=== PATIENT | male | born 1930 | race Caucasian/White ===

== ENCOUNTER 2016-12-19 14:16 | Observation (INO) ==
--- NOTE | 2016-12-19 14:50 | Emergency Department Note ---
Disposition Clinical Impression: Concussion without loss of consciousness Qualifiers: Encounter type: initial encounter Qualified Code(s): S06.0X0A - Concussion without loss of consciousness, initial encounter Fracture of left humerus Qualifiers: Encounter type: initial encounter Humerus Location: surgical neck Fracture type : closed Fracture morphology: 2-part Fracture alignment: nondisplaced Qualified Code(s): S42.225A - 2-part nondisplaced fracture of surgical neck of left humerus, initial encounter for closed fracture Disposition: Admitted As Inpatient Condition: Fair Time of Disposition: 18:23 Fall HPI - General Chief Complaint: ED Fall Stated Complaint: fall Time Seen by Provider: 12/19/16 14:25 Source: EMS Mode of arrival: EMS Limitations: no limitations Nursing Notes Reviewed: Yes Vital Signs Reviewed: Yes - History of Present Illness HPI Narrative: 78-year-old male with mechanical fall onto his right outstretched hand, also sustained a head injury, unsure if he lost consciousness. Patient states that he does not take blood thinners, than that his only medical history is GERD. He rates it 8/10 aching pain in his head. Bleeding from his right scalp with a large hematoma and bruise. Patient denies any history of falls, hit an ice history of stroke, heart attack. Patient states that he did not have any syncope or lightheadedness that he just slipped on something outside while walking with his cane. Pt Subjective Complaint: fall Onset (ago): hour(s) Fall From: standing Fall Witnessed: no Place Fall Occurred: home Loss of Consciousness: unsure Prolonged Down Time?: no Symptoms Prior to Fall: none Context: tripped/slipped Location of injury: head, face Location of injury - extremities: Left: shoulder, Right: hand Severity: moderate Severity scale (1-10): 8 Associated symptoms (after fall): Reports: headache. Denies: neck pain, numbness, weakness, chest pain - Related Data Allergies Allergy/AdvReac Type Severity Reaction Status Date / Time mirabegron [From Myrbetriq] AdvReac Unknown Vomiting Unverified 04/04/16 22:53 All systems ED: reviewed and negative except as stated. Constitutional: Denies: fever, chills Cardiovascular: Denies: chest pain, palpitations Respiratory: Denies: cough, dyspnea Gastrointestinal: Denies: abdominal pain, nausea, vomiting Genitourinary: Denies: urgency, dysuria Musculoskeletal: Reports: as per HPI, joint swelling, myalgia Integumentary: Reports: as per HPI, lesions Neurological: Reports: as per HPI, headache, abnormal gait Fall PMH - Past Medical History Medical history: Reports: arthritis, cancer, hyperlipidemia, hypertension Psychiatric history: Reports: no psych history - Social History Smoking Status: Never smoker Alcohol use: Reports: none Drug use: Reports: none Physical Exam A airway patent B breathing bilateral breath sounds intact C circulation +2 bilateral dorsalis pedis and radial pulses Constitutional: Elderly gentleman appears in no acute distress, obvious head injury. HEENT: As laceration to the right anterior forehead, with arterial bleed, good hemostasis with pressure. Large abrasion the right right as well with hematoma. sclera anicteric, PERRLA bilaterally, normal external ears bilaterally, no evidence of skull fracture no hemotympanum. nasal septum nondeviated, average dentition, MMM Neck: normal inspection, neck is supple, trachea midline Resp: normal chest inspection, CTA bilaterally, no resp distress CV: RRR, no m/g/r GI: normal inspection, Soft, NTND, BS present Back: normal inspection, no tenderness to palpation Neuro: A&O3, no gross motor or sensory deficits bilaterally clearly intact bilateral upper and lower ext distally. Skin: No rashes, skin warm, dry, intact - General Limitations: no limitations General appearance: alert Course Course Narrative: 86-year-old male with mechanical fall, suspect left shoulder injury with x-ray, and a head CT and neck CT to evaluate for ICH and neck fracture. Patient likely has a concussion given fall and mechanism puncture downtime, he is not on any blood thinners so may be candidate for surgical evaluation or observation pending on findings she will be repaired to the right anterior forehead and the right digit please laceration note Vital Signs Temperature 98.5 F 12/19/16 14:17 Pulse Rate 65 12/19/16 14:17 Respiratory Rate 18 12/19/16 14:17 Blood Pressure 185/84 12/19/16 14:17 O2 Sat by Pulse Oximetry 96 12/19/16 14:17 Temperature 98.5 F 12/19/16 14:17 Pulse Rate 62 12/19/16 18:12 Respiratory Rate 16 12/19/16 18:12 Blood Pressure 162/76 12/19/16 18:12 O2 Sat by Pulse Oximetry 96 12/19/16 18:12 Oxygen Delivery Oxygen Delivery Room Air Fall - MDM Narrative Medical decision making narrative: 86-year-old male with fall, sustaining left humerus fracture, admitted due to debility, weakness, unable to ambulate at home fall risk, consult orthopedic admitted hospital service - Differential Diagnosis Likely: syncope, traumatic injury - Medical Records Medical records reviewed: Yes I reviewed the patient's medical records. - Lab Data Lab results reviewed: Yes I reviewed the patient's lab results. Result diagrams: 12/19/16 15:51 12/19/16 15:51 Lab Results 12/19/16 12/19/16 Range/Units 15:51 15:51 WBC 9.2 (4.3-11.1) K/mcL RBC 4.48 (4.19-5.50) M/mcL Hgb 13.2 (12.9-16.9) g/dL Hct 41.4 (37.5-50.1) % MCV 92.4 (83.0-100.0) fL MCH 29.5 (28.0-33.3) pg MCHC 31.9 (31.6-35.5) g/dL RDW 12.6 (11.5-14.5) % Plt Count 170 (140-400) K/mcL MPV 10.8 (9.4-12.4) fL Immature Gran % 0.2 (0-4) % Seg Neutrophils % 82.2 % Lymphocytes % 8.2 % Monocytes % 6.7 % Eosinophils % 2.3 % Basophils % 0.4 % Neutrophils # 7.6 (1.6-8.9) K/mcL Lymphocytes # 0.8 (0.6-4.6) K/mcL Monocytes # 0.6 (0.0-1.3) K/mcL Eosinophils # 0.2 (0.0-0.6) K/mcL Basophils # 0.0 (0.0-0.2) K/mcL Sodium 139 (136-145) mEq/L Potassium 4.3 (3.5-4.5) mEq/L Chloride 104 (98-109) mEq/L Carbon Dioxide 24 (19-29) mEq/L BUN 14 (8-26) mg/dL Creatinine 1.03 (0.72-1.25) mg/dL Est GFR ( Amer) > 60 (> 60) Est GFR (Non-Af Amer) > 60 (> 60) BUN/Creatinine Ratio 14 (6-26) Glucose 121 H (70-99) mg/dL Calculated Osmolality 290 (280-300) Calcium 8.6 (8.6-10.8) mg/dL - Radiology Data Radiology results reviewed: Yes I reviewed the patient's radiology results. Cervical Spine CT 12/19/16 14:46 IMPRESSION: No acute abnormality of the cervical spine. D/ / Keith Mata MD / Keith Mata MD Interpreting Provider: Keith Mata MD Chest X-Ray 12/19/16 14:46 IMPRESSION: 1. Left basilar atelectasis versus scarring. 2. Nondisplaced left humeral surgical neck fracture. D/ / Rob Virgen MD / Rob Virgen MD Interpreting Provider: Rob Virgen MD Face CT 12/19/16 14:46 IMPRESSION: 1. No acute facial bone abnormality. 2. Right frontal scalp laceration and swelling. No radiopaque foreign body. D/ / Rob Virgen MD / Rob Virgen MD Interpreting Provider: Rob Virgen MD Head CT 12/19/16 14:46 IMPRESSION: No acute intracranial abnormality. D/ / Joshua Larsen MD / Joshua Larsen MD Interpreting Provider: Joshua Larsen MD Knee X-Ray 12/19/16 14:50 IMPRESSION: No acute bony injury. 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 Small joint effusion may be secondary to arthritis but cannot exclude internal derangement. D/ / Mina Fernandez MD / Mina Fernandez MD Interpreting Provider: Mina Fernandez MD Shoulder X-Ray 12/19/16 14:50 IMPRESSION: Acute nondisplaced left humeral surgical neck fracture. D/ / Rob Virgen MD / Rob Virgen MD Interpreting Provider: Rob Virgen MD - EKG Data EKG attestation: Yes I reviewed and interpreted this EKG. EKG shows normal: sinus rhythm (Sinus rhythm ventricular rate of 67 WA 153 QRS 106 QTC 411.) Rhythm: NSR Kennan/QRS: normal When compared to previous EKG there are: no significant changes Interpretation: no acute changes - Core Measures AMI Core Measures Followed: No
--- NOTE | 2016-12-19 15:30 | Emergency Department Note ---
START Narrative - START START: I examined this patient and my medical decision-making was reviewed with the LIABILITY CLAIMS ADJUSTER/PA/Advanced Practice Nurse/Resident Physician. I agree with the documented findings, disposition and treatment plan as described except to the extent set forth below. ED attending note: Patient seen with emergency medicine resident Dr. Florence. Please see a copy of his note for details of the H&P, evaluation, management and disposition of this patient. We independently had [id number] contact with the patient Briefly: 86-year-old male mechanical fall on an object and fell face forward on concrete. End hematoma on the scalp with an abrasion. Process of consciousness. His tetanus is up-to-date. Patient is normal blood thinners. CT scans of the head face and neck are pending. Patient in a c-collar. Provided 30 minutes critical care service for this patient. Disposition pending.
[2016-12-19 16:10] LABS: Basophils % 0.4 %; Eosinophils # 0.2 K/mcL (0.0-0.6); Eosinophils % 2.3 %; Hematocrit 41.4 % (37.5-50.1); Hemoglobin 13.2 g/dL (12.9-16.9); Immature Granulocytes % 0.2 % (0-4); Lymphocytes # 0.8 K/mcL (0.6-4.6); Lymphocytes % 8.2 %; Mean Corpuscular HGB Conc 31.9 g/dL (31.6-35.5); Mean Corpuscular Hemoglobin 29.5 pg (28.0-33.3); Mean Corpuscular Volume 92.4 fL (83.0-100.0); Mean Platelet Volume 10.8 fL (9.4-12.4); Monocytes # 0.6 K/mcL (0.0-1.3); Monocytes % 6.7 %; Neutrophils # 7.6 K/mcL (1.6-8.9); Platelet Count 170 K/mcL (140-400); Red Blood Count 4.48 M/mcL (4.19-5.50); Red Cell Distribution Width 12.6 % (11.5-14.5); Segmented Neutrophils % 82.2 %
[2016-12-19] MEDS ORDERED: Lidocaine/EPI 1:100k 2% 20 ML VIAL INFILT ONE (16:33)
[2016-12-19 16:36] LABS: BUN/Creatinine Ratio 14 (6-26); Blood Urea Nitrogen 14 mg/dL (8-26); Calcium 8.6 mg/dL (8.6-10.8); Carbon Dioxide 24 mEq/L (19-29); Chloride 104 mEq/L (98-109); Glucose 121 mg/dL (70-99); Osmolality,Calculated 290 (280-300); Potassium 4.3 mEq/L (3.5-4.5); Sodium 139 mEq/L (136-145); eGFR For African Americans > 60 (> 60); eGFR For Non-African Americans > 60 (> 60)
[2016-12-19] MEDS ORDERED: Tdap (Boostrix) Vaccine 0.5 ML SYRINGE IM ONE (17:11)
[2016-12-19] MEDS ORDERED: Neosporin OINT 15 GM TUBE TP ONE (17:12)
[2016-12-19] MEDS ORDERED: Naloxone 0.4 MG/ML INJ IVP PRN (21:04)
--- NOTE | 2016-12-19 23:37 | Internal Med History&Physical ---
<Lynda Heredia M - Last Filed: 12/20/16 01:20> Date of Encounter: 12/19/16 Time of Encounter: 23:32 Assessment and Plan (1) Fracture of left humerus Current visit: Yes Status: Acute Shoulder x-ray reveals acute nondisplaced left humeral neck fracture. Dr. Mccabe is consulted and will see patient tomorrow. Left arm in sling. Melrude and morphine when necessary for pain control PT and OT consults Social work consult for discharge planning Qualifiers: Encounter type: initial encounter Humerus Location: surgical neck Fracture type: closed Fracture morphology: 2-part Fracture alignment: nondisplaced Qualified Code(s): S42.225A - 2-part nondisplaced fracture of surgical neck of left humerus, initial encounter for closed fracture (2) Fall Current visit: Yes Status: Acute Patient suffered a mechanical fall ambulating up a hill with his walker. He denies dizziness, lightheadedness, or loss of consciousness. She did hit his head CT of the head showed no acute intracranial abnormality and right frontal scalp hematoma. He suffered a left humeral neck fracture as evidenced by the shoulder x-ray. Social work consult for discharge planning PT and OT consults Qualifiers: Encounter type: initial encounter Qualified Code(s): W19.XXXA - Unspecified fall, initial encounter (3) Head injury due to trauma Current visit: Yes Status: Acute Patient with right forehead laceration, sutured and dressed in the emergency department. Right frontal scalp hematoma. CT of head shows no acute intracranial abnormality. Remove dressing from head tomorrow. Will need follow-up for suture removal. Qualifiers: Encounter type: initial encounter Qualified Code(s): S09.90XA - Unspecified injury of head, initial encounter (4) DVT prophylaxis Current visit: Yes Status: Acute Ambulate with assistance SCDs Lovenox 40 mg subcutaneous daily Internal Medicine - H&P: HPI Chief complaint: Fall Admitted From: Emergency Dept Plans for Post Hospital Care: Home History of present illness: Mr. Cohen is a 86 year old male with hyperlipidemia, sleep apnea, acid reflux, history of colon cancer status post partial colectomy and chemotherapy in 1996, who presented to the emergency department today after suffering a fall. Patient reports he is ambulating with his walker up an incline and his walker hit an obstacle and he lost his balance and fell. Patient had hit his head, his right arm and left arm both hurt after the fall as well. Evaluation in the emergency department revealed right forehead hematoma and laceration which was sutured and dressed, and digit 5 on the right hand laceration which was also sutured and dressed. X-rays revealed acute nondisplaced left humeral neck fracture. CT of the head and face showed right frontal scalp hematoma, and no acute intracranial abnormality. EKG showed normal sinus rhythm. Dr. Mccabe was consulted and will see patient tomorrow. On exam, patient was resting comfortably, alert and oriented, in no acute distress. Dressing over head in place with clean and dry. He was neurovascularly intact, he was able to squeeze my fingers with bilateral hands, and had normal capillary refill. Lungs were clear bilaterally to auscultation and heart had regular rate and rhythm. Note: patient is a poor historian and unsure of what medications he takes, his daughter should be bringing in his med list tomorrow. Past Med Surg Social Fam HX - Past Medical History Source: patient Medical history: arthritis, cancer (colon cancer s/p partial colectomy and chemo 1996), hyperlipidemia, hypertension Psychiatric history: no psych history - Past Surgical History Surgical History: colectomy (partial colectomy for colon cancer 1996), knee replacement, orthopedic, other - Social History Smoking Status: Never smoker Smokeless Tobacco Status: No Alcohol use: none Drug use: none - Family History Father Living Status: Age at : 93 Hx Family Cardiac Disorders: No Hx Family Respiratory Disorders: No Hx Family Cancer: No Hx Family Neurologic Disorders: Yes Hx Family Medical Disorders: Yes Mother Living Status: Age at : 93 Internal Medicine - H&P: Meds Allergies mirabegron [From Myrbetriq] Adverse Reaction (Unknown, Verified 12/19/16 18:29) Vomiting and nausea All Systems PM: A 10-system review of systems was performed and is negative for pertinent findings except as documented above in the HPI. - Constitutional Constitutional: falls, no chills, no fever(s), no night sweats - EENT Eyes: no change in vision, no discharge, no pain, no photophobia Ears: no ear discharge, no ear pain, no tinnitus Nose, mouth and throat: no dysphagia, no nasal discharge, no neck pain, no sore throat - Cardiovascular Cardiovascular ROS IM: no chest pain, no diaphoresis, no dyspnea, no lightheadedness, no palpitations, no syncope - Respiratory Respiratory: no cough, no dyspnea, no wheezing, no excessive phlegm production - Gastrointestinal Gastrointestinal: no abdominal pain, no diarrhea, no hematemesis, no hematochezia, no melena, no nausea, no vomiting - Musculoskeletal Musculoskeletal ROS IM: no numbness, no tingling Additional comments: pain in left shoulder and right arm after fall - Integumentary Integumentary IM: new lesions Additional comments: head laceration and right hand 5th digit laceration - Neurological Neurological ROS: headache(s), no confusion, no convulsions, no focal weakness, no numbness, no tingling, no tremor(s) - Hematologic/Lymphatic Hematologic/Lymphatic: no easy bruising - Constitutional Vitals: Temp Pulse Resp BP Pulse Ox 99.1 F 64 15 139/73 94 L 12/19/16 19:59 12/19/16 19:59 12/19/16 19:59 12/19/16 19:59 12/19/16 19:59 General appearance: Present: A&O X 3, no acute distress - Head Head exam: Present: normocephalic Additional comments: Patient with ecchymosis over right eye, Dressing in place over right forehead laceration - Eye Eye exam: Present: periorbital swelling (right), PERRL, conjuntiva pink, sclera anicteric Pupils: Present: PERRL - Neck Neck exam general surgery: Present: supple, trachea midline. Absent: lymphadenopathy - Respiratory Respiratory exam: Present: CTAB. Absent: accessory muscle use, rales, rhonchi, wheezes - Cardiovascular Cardiovascular exam: Present: RRR, +S1, +S2. Absent: diastolic murmur, gallop, rubs, systolic murmur - GI/Abdominal GI/Abdominal exam: Present: hernia (umbilical hernia - reducible), normal bowel sounds, soft, no peritoneal signs. Absent: distended, tenderness - Extremities Exam Extremities exam: Present: warm, radial pulses palpable and symetrical. Absent : calf tenderness, cyanotic, full ROM (right shoulder), pedal edema - Expanded Upper Extremities Exam Shoulder exam: Present: swelling (left), tenderness (Left) Hand wrist exam: Present: full ROM - Neurological Exam Neurological exam: Present: CN II-XII intact, oriented X3, no focal deficits. Absent: facial droop, speech deficit - Skin Skin exam: Present: dry, intact Internal Med - H&P Results - Labs CBC & Chem 7: 12/19/16 15:51 12/19/16 15:51 Labs: All Lab Results (24 Hours) 12/19/16 12/19/16 Range/Units 15:51 15:51 WBC 9.2 (4.3-11.1) K/mcL RBC 4.48 (4.19-5.50) M/mcL Hgb 13.2 (12.9-16.9) g/dL Hct 41.4 (37.5-50.1) % MCV 92.4 (83.0-100.0) fL MCH 29.5 (28.0-33.3) pg MCHC 31.9 (31.6-35.5) g/dL RDW 12.6 (11.5-14.5) % Plt Count 170 (140-400) K/mcL MPV 10.8 (9.4-12.4) fL Immature Gran % 0.2 (0-4) % Seg Neutrophils % 82.2 % Lymphocytes % 8.2 % Monocytes % 6.7 % Eosinophils % 2.3 % Basophils % 0.4 % Neutrophils # 7.6 (1.6-8.9) K/mcL Lymphocytes # 0.8 (0.6-4.6) K/mcL Monocytes # 0.6 (0.0-1.3) K/mcL Eosinophils # 0.2 (0.0-0.6) K/mcL Basophils # 0.0 (0.0-0.2) K/mcL Sodium 139 (136-145) mEq/L Potassium 4.3 (3.5-4.5) mEq/L Chloride 104 (98-109) mEq/L Carbon Dioxide 24 (19-29) mEq/L BUN 14 (8-26) mg/dL Creatinine 1.03 (0.72-1.25) mg/dL Est GFR ( Amer) > 60 (> 60) Est GFR (Non-Af Amer) > 60 (> 60) BUN/Creatinine Ratio 14 (6-26) Glucose 121 H (70-99) mg/dL Calculated Osmolality 290 (280-300) Calcium 8.6 (8.6-10.8) mg/dL - Diagnostic Studies Other Images Additional comments: Cervical Spine CT 12/19/16 14:46 IMPRESSION: No acute abnormality of the cervical spine. D/ / Keith Mata MD / Keith Mata MD Interpreting Provider: Keith Mata MD Chest X-Ray 12/19/16 14:46 IMPRESSION: 1. Left basilar atelectasis versus scarring. 2. Nondisplaced left humeral surgical neck fracture. D/ / Rob Virgen MD / Rob Virgen MD Interpreting Provider: Rob Virgen MD Face CT 12/19/16 14:46 IMPRESSION: 1. No acute facial bone abnormality. 2. Right frontal scalp laceration and swelling. No radiopaque foreign body. D/ / Rob Virgen MD / Rob Virgen MD Interpreting Provider: Rob Virgen MD Head CT 12/19/16 14:46 IMPRESSION: No acute intracranial abnormality. D/ / Joshua Larsen MD / Joshua Larsen MD Interpreting Provider: Joshua Larsen MD Knee X-Ray 12/19/16 14:50 IMPRESSION: No acute bony injury. 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 Small joint effusion may be secondary to arthritis but cannot exclude internal derangement. D/ / Mina Fernandez MD / Mina Fernandez MD Interpreting Provider: Mina Fernandez MD Shoulder X-Ray 12/19/16 14:50 IMPRESSION: Acute nondisplaced left humeral surgical neck fracture. D/ / Rob Virgen MD / Rob Virgen MD Interpreting Provider: Rob Virgen MD Hand X-Ray 12/19/16 16:50 IMPRESSION: 1. No acute findings in the right hand. 2. Mild to moderate osteoarthritic changes in the right wrist and hand as above, most severe in the 2nd through 5th distal interphalangeal joints. 3. Bony demineralization. D/ / Bryan Angelo MD / Bryan Angelo MD Interpreting Provider: Bryan Angelo MD <Lisa Argueta R - Last Filed: 12/20/16 22:37> Internal Medicine - H&P: HPI History of present illness: Mr. Cohen is a 86 year old male All Systems PM: A 10-system review of systems was performed and is negative for pertinent findings except as documented above in the HPI. - Constitutional Vitals: Temp Pulse Resp BP Pulse Ox 98.9 F 81 17 120/55 92 L 12/20/16 20:04 12/20/16 20:40 12/20/16 20:04 12/20/16 20:40 12/20/16 20:04 Internal Med - H&P Results - Labs CBC & Chem 7: 12/20/16 04:40 12/20/16 04:40 Labs: Short CBC 12/20/16 Range/Units 04:40 WBC 9.7 (4.3-11.1) K/mcL Hgb 12.0 L (12.9-16.9) g/dL Hct 36.5 L (37.5-50.1) % Plt Count 155 (140-400) K/mcL Neutrophils # 7.3 (1.6-8.9) K/mcL BMP 12/20/16 04:40 Sodium 137 Potassium 4.2 Chloride 107 Carbon Dioxide 24 BUN 14 Creatinine 0.88 Glucose 118 H Calcium 8.6 - Attending Attestation CARTRIDGE ASSEMBLING MACHINE ADJUSTER discussed the details with me. I have attempted to see the pt. Pt was sleeping on 2 occassions, when I tried to visit him. He apparently mentioned to the staff not to bother his sleep.
[2016-12-20] MEDS: 0.9 % Sodium Chloride 1,000 ML IVC SCH ×2 (00:24→11:03)
[2016-12-20] MEDS: *HR* Enoxaparin 40 MG/0.4 ML SYRINGE SQ SCH (05:04)
[2016-12-20] MEDS: *HR* Morphine 2 MG/ML SYRINGE IVP PRN ×2 (05:07→21:05)
[2016-12-20 05:16] LABS: Basophils % 0.3 %; Eosinophils # 0.2 K/mcL (0.0-0.6); Eosinophils % 2.2 %; Hematocrit 36.5 % (37.5-50.1); Immature Granulocytes % 0.3 % (0-4); Lymphocytes # 1.2 K/mcL (0.6-4.6); Lymphocytes % 12.5 %; Mean Corpuscular HGB Conc 32.9 g/dL (31.6-35.5); Mean Corpuscular Hemoglobin 30.8 pg (28.0-33.3); Mean Corpuscular Volume 93.6 fL (83.0-100.0); Monocytes % 9.9 %; Neutrophils # 7.3 K/mcL (1.6-8.9); Platelet Count 155 K/mcL (140-400); Segmented Neutrophils % 74.8 %
[2016-12-20 05:41] LABS: BUN/Creatinine Ratio 16 (6-26); Blood Urea Nitrogen 14 mg/dL (8-26); Calcium 8.6 mg/dL (8.6-10.8); Carbon Dioxide 24 mEq/L (19-29); Chloride 107 mEq/L (98-109); Glucose 118 mg/dL (70-99); Osmolality,Calculated 286 (280-300); Potassium 4.2 mEq/L (3.5-4.5); Sodium 137 mEq/L (136-145); eGFR For African Americans > 60 (> 60); eGFR For Non-African Americans > 60 (> 60)
--- NOTE | 2016-12-20 06:43 | Orthopedic Consult Note ---
Date of Encounter: 12/20/16 Time of Encounter: 06:42 History of Present Illness HPI: Mr. Cohen is a 86 year old male s/p fall yesterday. Asked to see patient for left shoulder PE LUE decrease ROM secondary to pain NVI x-rays nondisplace proximal humerus fracture. treat with sling non operative f/u office 1 week. Past Med Surg Social Fam HX - Past Medical History Medical history: arthritis, cancer (colon cancer s/p partial colectomy and chemo 1996), hyperlipidemia, hypertension Psychiatric history: no psych history - Past Surgical History Surgical History: colectomy (partial colectomy for colon cancer 1996), knee replacement, orthopedic, other - Social History Smoking Status: Never smoker Smokeless Tobacco Status: No Alcohol use: none Drug use: none - Family History Father Living Status: Age at : 93 Hx Family Cardiac Disorders: No Hx Family Respiratory Disorders: No Hx Family Cancer: No Hx Family Neurologic Disorders: Yes Hx Family Medical Disorders: Yes Mother Living Status: Age at : 93 Medications and Allergies Levothyroxine [Synthroid] 25 mcg PO 0630 12/20/16 [History] Tamsulosin [Flomax] 0.4 mg PO DAILY 12/20/16 [History] Tramadol HCl [Ultram] 50 mg PO BID PRN 12/20/16 [History] Allergies mirabegron [From Myrbetriq] Adverse Reaction (Unknown, Verified 12/19/16 18:29) Vomiting and nausea All Systems Reviewed: A 10-system review of systems was performed and is negative for pertinent findings except as documented above in the HPI. Physical Exam - Constitutional Vitals: Temp Pulse Resp BP Pulse Ox 98.8 F 77 16 164/81 94 L 12/20/16 04:55 12/20/16 04:55 12/20/16 04:55 12/20/16 04:55 12/20/16 04:55 Results - Labs Result Diagrams: 12/20/16 04:40 12/20/16 04:40 Labs: Abnormal lab results RBC 3.90 M/mcL (4.19-5.50) L 12/20/16 04:40 Hgb 12.0 g/dL (12.9-16.9) L 12/20/16 04:40 Hct 36.5 % (37.5-50.1) L 12/20/16 04:40 Glucose 118 mg/dL (70-99) H 12/20/16 04:40 H & H 12/20/16 Range/Units 04:40 Hgb 12.0 L (12.9-16.9) g/dL Hct 36.5 L (37.5-50.1) % All other labs normal. Consult Discharge Plan - Plan Referrals: Leslee Ndiaye MD [Primary Care Provider] -
[2016-12-20] MEDS: *HR* HYDROcodone/Acet 5/325 mg TABLET PO PRN ×2 (10:57→17:23)
--- NOTE | 2016-12-20 15:35 | Electrocardiograph Report ---
[place] [id number] Test Date: 2016-12-19 Pat Name: Rashel Cohen Department: 104 Room: [facility] Gender: M Waiter/Waitress Room Service: : 1930 Requested By: Jaron Florence Order Number: [id number] Reading MD: Justin Duncan MD Measurements Intervals [place] Rate: 67 P: 57 SC: 153 QRS: -22 QRSD: 106 T: 59 QT: 396 QTc: 411 Interpretive Statements SINUS RHYTHM BORDERLINE LEFT AXIS DEVIATION Electronically Signed On 12-20-2016 15:33:08 EDT by Justin Duncan MD
--- NOTE | 2016-12-20 16:42 | Event Note ---
Date of Encounter: 12/20/16 Time of Encounter: 16:37 Mr. Cohen is a 86 year old male with hyperlipidemia, sleep apnea, acid reflux, history of colon cancer status post partial colectomy and chemotherapy in 1996, who presented to the emergency department today after suffering a fall. CT of the head and face showed right frontal scalp hematoma, and no acute intracranial abnormality. x-rays show nondisplaced proximal humerus fracture. seen at the bedside, ortho has been consulted and they recommend treat with sling non operative f/u office 1 week. pain is adequatley conteolled, home meds has been restarted . PT /OT yet to evaluate him today. will follow recommendtaions for the possible need of placement
[2016-12-20] MEDS: Gabapentin 300 MG CAPSULE PO SCH (21:06)
[2016-12-21] MEDS: *HR* Enoxaparin 40 MG/0.4 ML SYRINGE SQ SCH (05:15)
[2016-12-21] MEDS ORDERED: Levothyroxine 25 MCG TABLET PO SCH (06:30)
[2016-12-21] MEDS: *HR* HYDROcodone/Acet 5/325 mg TABLET PO PRN (07:53)
[2016-12-21] MEDS: Gabapentin 300 MG CAPSULE PO SCH (07:53)
[2016-12-21 11:01] VITALS: BP 124/71
--- NOTE | 2016-12-21 12:04 | Discharge Summary ---
Date of Encounter: 12/21/16 Time of Encounter: 12:01 - Discharge Diagnosis (1) DVT prophylaxis Priority: Secondary Status: Acute (2) Fall Priority: Primary Status: Acute Qualifiers: Encounter type: initial encounter Qualified Code(s): W19.XXXA - Unspecified fall, initial encounter (3) Fracture of left humerus Priority: Primary Status: Acute Qualifiers: Encounter type: initial encounter Humerus Location: surgical neck Fracture type: closed Fracture morphology: 2-part Fracture alignment: nondisplaced Qualified Code(s): S42.225A - 2-part nondisplaced fracture of surgical neck of left humerus, initial encounter for closed fracture - Discharge Medications Prescriptions: HYDROcodone/Acet 5/325 mg [[place] 5-325 mg] 1 tab PO Q6HR PRN #30 tablet PRN Reason: Moderate pain (4-7) Home Medications: Atorvastatin Calcium [Lipitor] 20 mg PO HS 12/20/16 [History] Docusate Sodium [Dok] 100 mg PO DAILY 12/20/16 [History] Furosemide [Lasix] 20 mg PO DAILY 12/20/16 [History] Gabapentin [Neurontin] 300 mg PO TID 12/20/16 [History] Levothyroxine [Synthroid] 25 mcg PO 0630 12/20/16 [History] Omeprazole [PriLOSEC] 20 mg PO DAILY 12/20/16 [History] Tamsulosin [Flomax] 0.8 mg PO DAILY 12/20/16 [History] HYDROcodone/Acet 5/325 mg [[place] 5-325 mg] 1 tab PO Q6HR PRN #30 tablet [Rx] Allergies/Adverse Reactions: Allergies mirabegron [From Myrbetriq] Adverse Reaction (Unknown, Verified 12/19/16 18:29) Vomiting and nausea Date of admission: 12/19/16 18:02 Primary care physician: Leslee Ndiaye, Consults: 12/19/16 21:07 Consult to Occupational Therapy [CONS] Routine Comment: Evaluate, develop and implement POC Consult to Physical Therapy [CONS] Routine Comment: Evaluate, develop and implement POC Consult to Traffic Line Painter [CONS] Routine Reason for SW Consult: 86M s/p fall at home with fractured humerus requiring surgical repair. May needs group home at discharge Discharging clinician: Colette Mina Anticipated date of discharge: 12/21/16 - Patient Status Disposition: Transfer Inpatient Rehab Fac Condition: Fair Functional capacity at discharge: independent ambulation Overall status at discharge: patient is progressing back to baseline - Discharge Instructions Follow Up With: Luz Maria Ponce, TONE [Advanced Practice Nurse] - 03/18/17 1:30 pm Cirilo Bland DO [Partnered Physician] - 12/30/16 1:05 pm Leslee Ndiaye MD [Primary Care Provider] - Shahrzad Lopez MD [Partnered Physician] - 01/11/17 2:45 pm Additional Instructions: Leave arm in sling. Follow up with Dr. Mccabe's office in 1 week. - Diet and Activity Activity: as per physical therapy Diet: advance to your usual diet Interval History: Mr. Cohen is a 86 year old male with hyperlipidemia, sleep apnea, acid reflux, history of colon cancer status post partial colectomy and chemotherapy in 1996, who presented to the emergency department today after suffering a fall. Patient reports he is ambulating with his walker up an incline and his walker hit an obstacle and he lost his balance and fell. Patient had hit his head, his right arm and left arm both hurt after the fall as well. Evaluation in the emergency department revealed right forehead hematoma and laceration which was sutured and dressed, and digit 5 on the right hand laceration which was also sutured and dressed. X-rays revealed acute nondisplaced left humeral neck fracture. CT of the head and face showed right frontal scalp hematoma, and no acute intracranial abnormality. EKG showed normal sinus rhythm. Dr. Mccabe was consulted.x-rays nondisplace proximal humerus fracture. HE recommended treat with sling non operative f/u office 1 week. HE is now being dc to inpt. rehab and will f/u with ortho as OP. Hospital course: Mr. Cohen is a 86 year old male Time spent discussing smoking cessation with patient: more than 10 minutes - Time Spent with Patient Total time spent providing and/or coordinating discharge services: Greater than 30 minutes - Constitutional Vitals: Temp Pulse Resp BP Pulse Ox 98.2 F 88 18 124/71 96 12/21/16 10:59 12/21/16 10:59 12/21/16 10:59 12/21/16 10:59 12/21/16 10:59 General appearance: Present: A&O X 3, no acute distress Exam: - Head Head exam: Present: normocephalic Additional comments: Patient with ecchymosis over right eye, Dressing in place over right forehead laceration - Eye Eye exam: Present: periorbital swelling (right), PERRL, conjuntiva pink, sclera anicteric Pupils: Present: PERRL - Neck Neck exam general surgery: Present: supple, trachea midline. Absent: lymphadenopathy - Respiratory Respiratory exam: Present: CTAB. Absent: accessory muscle use, rales, rhonchi, wheezes - Cardiovascular Cardiovascular exam: Present: RRR, +S1, +S2. Absent: diastolic murmur, gallop, rubs, systolic murmur - GI/Abdominal GI/Abdominal exam: Present: hernia (umbilical hernia - reducible), normal bowel sounds, soft, no peritoneal signs. Absent: distended, tenderness - Extremities Exam Extremities exam: Present: warm, radial pulses palpable and symetrical. Absent : calf tenderness, cyanotic, full ROM (right shoulder), pedal edema - Expanded Upper Extremities Exam Shoulder exam: Present: swelling (left), tenderness (Left) Hand wrist exam: Present: full ROM - Neurological Exam Neurological exam: Present: CN II-XII intact, oriented X3, no focal deficits. Absent: facial droop, speech deficit - Skin Skin exam: Present: dry, intact - VTE Documentation of Mechanical Device: Intermittent pneumatic compression device
--- NOTE | 2016-12-21 12:05 | Physician Discharge Referral ---
ExtendedCare Referral Info Transfer To: [facility] Provider in Charge: maddie yanez Institutional Level of Care: Intermediate - MR - Diagnosis (1) DVT prophylaxis Status: Acute (2) Fall Status: Acute (3) Fracture of left humerus Status: Acute - Transfer Medications Prescriptions: HYDROcodone/Acet 5/325 mg [[place] 5-325 mg] 1 tab PO Q6HR PRN #30 tablet PRN Reason: Moderate pain (4-7) Home Medications: Atorvastatin Calcium [Lipitor] 20 mg PO HS 12/20/16 [History] Docusate Sodium [Dok] 100 mg PO DAILY 12/20/16 [History] Furosemide [Lasix] 20 mg PO DAILY 12/20/16 [History] Gabapentin [Neurontin] 300 mg PO TID 12/20/16 [History] Levothyroxine [Synthroid] 25 mcg PO 0630 12/20/16 [History] Omeprazole [PriLOSEC] 20 mg PO DAILY 12/20/16 [History] Tamsulosin [Flomax] 0.8 mg PO DAILY 12/20/16 [History] HYDROcodone/Acet 5/325 mg [[place] 5-325 mg] 1 tab PO Q6HR PRN #30 tablet [Rx] Allergies/Adverse Reactions: Allergies mirabegron [From Myrbetriq] Adverse Reaction (Unknown, Verified 12/19/16 18:29) Vomiting and nausea - Respiratory Orders Smoking Cessation: Smoking cessation has been advised. For more information, call the [place] Tobacco Quit Line at 0-927-OCDD-NOW. - Advance Directives Code Status: Full Code - Mobility Orders Ambulate - Rehabiliation Orders Rehab Potential: Fair Rehab Orders: Evaluation for Physical Therapy, Evaluation for Occupational Therapy - Diet Orders Regular CERTIFICATION: I certify that the transfer of the above named patient to an Extended Care Facility is necessary for the continuing treatment of the diagnosis listed. The above information is true and accurate reflection of patient's current condition. Confidential - Redisclosure prohibited without a patient's written consent.
== END 2016-12-21 14:20 ==
LOC: 3NENU 14:16 → EMEROO 14:16 → 3NENU 19:03 → SUATTDRO 21:30
PROVIDERS: ADMIT Nurse Practitioner Family; ATTEND Internal Medicine Endocrinology, Diabetes & Metabolism